=== PATIENT | female | born 1970 | race African-American/Black ===

== ENCOUNTER 2016-08-24 22:23 | Emergency (ER) | payer SELFPAY ==
[2016-08-24] MEDS ORDERED: Ondansetron INJ* 2 MG/ML VIAL IV ONE (22:27)
[2016-08-24] MEDS ORDERED: NS 0.9% 1000 ML* 1,000 ML IV ONE (22:27)
--- NOTE | 2016-08-24 23:09 | ED ---
Angelina Zaldivar Salem, scribed for Kan Rice MD on 08/24/16 at 2251 . Substance Abuse/Use - HPI Summary HPI Summary: Patient is a 46 y/o female who presents to the ED per EMS with vomiting for the last 12 hours. Per EMS, pt drank a pint of Vodka DIRECTOR ADULT. She reports nausea, depression, and blood in her stool for the last 3 weeks. She states that she has not seen her PCP for the blood in the stool because she was "eating omeprazole like candy". She also states there was blood in her vomit. - History Of Current Complaint Stated Complaint: VOMIT BLOOD Hx Obtained From: Patient, EMS Onset/Duration of Drug/ETOH Abuse: Hours Ingestion History: Type/Name Of Drug - Vodka., Amount Ingested - One pint. Overdose Characteristics: Oral Severity Initially: Moderate Severity Currently: Moderate Aggravating Factor(s): Nothing Alleviating Factor(s): Nothing Associated Signs And Symptoms: Nausea, Vomiting - with blood., Other: - Depression. Blood in stool. - Allergies/Home Medications Allergies/Adverse Reactions: Allergies Allergy/AdvReac Type Severity Reaction Status Date / Time Ceftriaxone [From Rocephin] Allergy Severe Anaphylatic Verified 12/28/15 06:13 Shock Bupropion [From Wellbutrin] Allergy Intermediate Itching Verified 12/28/15 06:13 Tramadol Allergy Intermediate Itching Verified 12/28/15 06:13 Lactose Allergy GI Upset Verified 02/15/16 07:56 Topiramate [From Topamax] Allergy Unknown Verified 12/28/15 06:13 Reaction Details PMH/Surg Hx/FS Hx/Imm Hx Endocrine/Hematology History: Denies: Hx Anticoagulant Therapy, Hx Blood Disorders, Hx Blood Transfusions, Hx Bone Marrow Disease, Hx Diabetes, Hx Systemic Lupus Erythematosus, Hx Sickle Cell Disease, Hx Thyroid Disease, Hx Anemia, Hx Unexplained Bleeding Cardiovascular History: Reports: Hx Hypertension Denies: Hx Aneurysm, Hx Angina, Hx Angioplasty, Hx Auto Implanted Cardiovert Defib, Hx Cardiac Arrest, Hx Cardiomegaly, Hx Congenital Heart Disease, Hx Congestive Heart Failure, Hx Coronary Artery Disease, Hx Deep Vein Thrombosis, Hx Hypercholesterolemia, Hx Hypotension, Hx Pacemaker/ICD, Hx Peripheral Vascular Disease, Hx Rheumatic Fever, Hx Syncope, Hx Valvular Heart Disease, Other Cardiovascular Problems/Disorders Respiratory History: Reports: Hx Asthma, Hx Sleep Apnea Denies: Hx Chronic Bronchitis, Hx Chronic Obstructive Pulmonary Disease (COPD ), Hx Cystic Fibrosis, Hx Lung Cancer, Hx Pneumonia, Hx Pulmonary Edema, Hx Pulmonary Embolism, Hx Seasonal Allergies, Other Respiratory Problems/Disorders GI History: Reports: Hx Gall Bladder Disease, Hx Gastroesophageal Reflux Disease , Hx Gastrointestinal Bleed, Hx Obstructive Bowel, Hx Ulcer, Other GI Disorders Denies: Hx Cirrhosis, Hx Crohn's Disease, Hx Diverticulosis, Hx Hiatal Hernia , Hx Irritable Bowel, Hx Jaundice, Hx Ileostomy, Hx Pyloric Stenosis History: Denies: Hx Renal Disease Musculoskeletal History: Reports: Hx Arthritis, Hx Back Problems, Hx Orthopedic Injury - back/neck Sensory History: Denies: Hx Hearing Aid Neurological History: Reports: Hx Headaches, Hx Seizures Denies: Hx Dementia, Hx Developmental Delay, Hx Migraine, Hx Nerve Disease, Hx Spinal Cord Injury, Hx Transient Ischemic Attacks (TIA), Other Neuro Impairments/Disorders Psychiatric History: Reports: Hx Anxiety, Hx Depression, Hx Panic Disorder, Hx Post Traumatic Stress Disorder, Hx Inpatient Treatment, Hx Bipolar Disorder, Hx Suicide Attempt, Hx of Violent Episodes Against Others, Hx Substance Abuse, Other Psychiatric Issues/Disorders - Alcoholism Denies: Hx Attention Deficit Hyperactivity Disorder, Hx Eating Disorder, Hx Community Mental Health Tx, Hx Schizophrenia - Cancer History Hx Chemotherapy: No Hx Radiation Therapy: No Hx Palliative Cancer Treatment: No - Surgical History Surgery Procedure, Year, and Place: DOUBLE INGUINAL HERNIA. LYPOMA REMOVED FROM RIGHT BREAST. CERVIX. GASTRIC BYPASS. BOWEL OBSTRUCTION CORRECTION - Immunization History Date of Tetanus Vaccine: unknown Date of Influenza Vaccine: Unknown Infectious Disease History: Unable to Obtain/Confirm Infectious Disease History: Reports: Hx Hepatitis Denies: Hx Clostridium Difficile, Hx Human Immunodeficiency Virus (HIV), Hx Shingles, Hx Tuberculosis, Traveled Outside the [place] in Last 30 Days - Family History Known Family History: Positive: Hypertension - Social History Alcohol Use: Daily Alcohol Amount: drank "2 joints" tonight Hx Substance Use: No Substance Use Type: Reports: Cocaine, Marijuana, Other Substance Use Comment - Amount & Last Used: unknown Hx Tobacco Use: Yes Smoking Status (MU): Heavy Every Day Tobacco Smoker Type: Cigarettes Amount Used/How Often: 1 pack q day Have You Smoked in the Last Year: Yes Review of Systems Negative: Fever Positive: Vomiting, Nausea Positive: other - Blood in stool. Positive: Depressed All Other Systems Reviewed And Are Negative: Yes Physical Exam Triage Information Reviewed: Yes Vital Signs On Initial Exam: Initial Vitals Temp Pulse Resp BP Pulse Ox 98.1 F 98 16 177/116 100 08/24/16 22:29 08/24/16 22:29 08/24/16 22:29 08/24/16 22:29 08/24/16 22:29 Vital Signs Reviewed: Yes Appearance: Positive: No Pain Distress, Ill-Appearing Skin: Positive: Warm Head/Face: Positive: Normal Head/Face Inspection Eyes: Positive: [place] ENT: Positive: Hearing grossly normal Neck: Positive: Supple Respiratory/Lung Sounds: Positive: Breath Sounds Present Cardiovascular: Positive: RRR Abdomen Description: Positive: Soft, Other: - mild diffuse abd tenderness Bowel Sounds: Positive: Present Musculoskeletal: Positive: Strength/ROM Intact Neurological: Positive: Sensory/Motor Intact, Alert, Oriented to Person Place, Time Psychiatric: Positive: Affect/Mood Appropriate Diagnostics - Vital Signs Vital Signs Temp Pulse Resp BP Pulse Ox 08/24/16 22:29 98.1 F 98 16 177/116 100 - Laboratory Result Diagrams: 08/24/16 23:05 08/24/16 23:05 Lab Statement: Any lab studies that have been ordered have been reviewed, and results considered in the medical decision making process. Re-Evaluation - Re-Evaluation First Eval Change: Improved - no further vomit Course/Dx - Course Course Of Treatment: 46 y/o female presents with vomiting and EtOH intoxication. She reports nausea, depression, and blood in her stool for the last 3 weeks. She received IV fluids and Ondansetron in the ED. Serum EtOH: 174. - Diagnoses Provider Diagnoses: Vomiting, Alcohol use disorder, severe, dependence Discharge - Discharge Plan Condition: Improved Disposition: HOME Patient Education Materials: Alcohol Intoxication (ED), Acute Nausea and Vomiting (ED) Referrals: Steven Painter MD [Primary Care Provider] - Additional Instructions: Follow up with PCP. The documentation as recorded by the Angelina yee Salem accurately reflects the service I personally performed and the decisions made by , Kan Rice MD.
[2016-08-24 23:37] LABS: Comments Flag Yes; Hematocrit 31 % (35-47); Hemoglobin 9.5 g/dl (12.0-16.0); Mean Corpuscular HGB Conc 31 g/dl (31-36); Mean Corpuscular Hemoglobin 26 pg (27-31); Mean Corpuscular Volume 83 fL (80-97); Mean Platelet Volume 7 um3 (7.4-10.4); Red Blood Count 3.74 10^6/ul (4.0-5.4); White Blood Count 6.2 10^3/ul (3.5-10.8)
[2016-08-24 23:38] LABS: Red Cell Distribution Width 27 % (10.5-15)
[2016-08-24 23:46] LABS: BUN/Creatinine Ratio 12.3 (8-20); C Reactive Protein 3.49 mg/L (< 5.00); Calcium 8.9 mg/dL (8.6-10.3); EGFR African American 109.9 (>60); EGFR Non-African American 85.5 (>60); Globulin 4.1 g/dL (2-4); Magnesium 1.5 mg/dL (1.9-2.7); Potassium 3.3 mmol/L (3.5-5.0); Total Bilirubin 0.4 mg/dL (0.2-1.0); Total Protein 8.1 g/dL (6.4-8.9)
[2016-08-25] MEDS ORDERED: LORazepam INJ* 2 MG/ML 1 ML VIAL IV PUSH ONE (00:07)
[2016-08-25] MEDS ORDERED: Metoclopramide IV* 5 MG/ML 2 ML VIAL IV ONE (00:07)
[2016-08-25] MEDS: Ondansetron ODT TAB* 4 MG PO ONE ×2 (05:37)
[2016-08-25 06:02] VITALS: BP 176/101
== END 2016-08-25 06:31 | disposition home or self-care (01) ==
LOC: ED 22:23
DX: F10.20 Alcohol dependence, uncomplicated (principal); R11.2 Nausea with vomiting, unspecified; F32.9 Major depressive disorder, single episode, unspecified; F17.210 Nicotine dependence, cigarettes, uncomplicated
CPT/HCPCS: 36415; 80053; 80320; 83605; 83690; 83735; 85025; 85610; 86140; 96374; 96375; 99284; G0480; J2060; J2405

== ENCOUNTER 2016-08-25 19:38 | Emergency (ER) | payer SELFPAY ==
[2016-08-25] MEDS ORDERED: Metoprolol Tartrate IV* 1 MG/ML 5 ML VIAL IV ONE (19:56)
[2016-08-25] MEDS ORDERED: NS 0.9% 1000 ML* 1,000 ML IV ONE (19:56)
[2016-08-25] MEDS ORDERED: Ketorolac INJ* 30 MG/ML 1 ML VIAL IV PUSH ONE (20:35)
[2016-08-25 20:42] LABS: Hematocrit 31 % (35-47); Hemoglobin 9.7 g/dl (12.0-16.0); Mean Corpuscular HGB Conc 31 g/dl (31-36); Mean Corpuscular Hemoglobin 26 pg (27-31); Mean Corpuscular Volume 82 fL (80-97); Mean Platelet Volume 8 um3 (7.4-10.4); White Blood Count 13.4 10^3/ul (3.5-10.8)
[2016-08-25] MEDS ORDERED: Ondansetron INJ* 2 MG/ML VIAL IV ONE (20:44)
[2016-08-25 20:46] LABS: Comments Flag Yes
[2016-08-25 20:47] LABS: Red Cell Distribution Width 25 % (10.5-15)
[2016-08-25 20:48] LABS: Add Diff/Slide Review? Slide Review Added
[2016-08-25 20:57] LABS: Albumin 3.8 g/dL (3.2-5.2); BUN/Creatinine Ratio 11.8 (8-20); Calcium 8.8 mg/dL (8.6-10.3); EGFR African American 92.2 (>60); EGFR Non-African American 71.7 (>60); Globulin 4.1 g/dL (2-4); Magnesium 1.1 mg/dL (1.9-2.7); Total Bilirubin 0.6 mg/dL (0.2-1.0); Total Protein 7.9 g/dL (6.4-8.9)
[2016-08-25 20:58] LABS: Potassium 2.6 mmol/L (3.5-5.0)
[2016-08-25] MEDS ORDERED: Potassium Chloride LIQUID* 20 MEQ PACKET PO ONE (21:00)
[2016-08-25] MEDS ORDERED: Metoclopramide IV* 5 MG/ML 2 ML VIAL IV ONE (22:56)
--- NOTE | 2016-08-26 00:18 | ED ---
Rogelio Zaldivar SooYoung, scribed for Kan Rice MD on 08/25/16 at 2001 . Neurological HPI - HPI Summary HPI Summary: A 46 y/o F GISEL presents to ED with fronta SOLIMAN onset SURGICAL CORSETIER. Pt states she had a seizure. Per EMS: When she went to get on the bus, she lost her balance. When they arrived on scene, pt was alert at the bus stop smoking a cigarette. Associated sx: loss of balance. Denies EtOH today. Pert PMHx: sz. Pt does not take sz medication. Pt was seen yesterday in ED for c/o of hemesis; dx: EToH intoxication, acute n/v. - History of Current Complaint Stated Complaint: SEIZURE Time Seen by Provider: 08/25/16 19:49 Hx Obtained From: Patient, EMS, Medical Records Onset/Duration: Sudden Onset, Started hours ago, Still Present Timing: Constant Pain Intensity: 8 Pain Scale Used: 0-10 Numeric Associated Signs and Symptoms: Positive: Unsteady Gait, Seizure - Additional Pertinent History Primary Care Physician: [id number] - Allergy/Home Medications Allergies/Adverse Reactions: Allergies Allergy/AdvReac Type Severity Reaction Status Date / Time Ceftriaxone [From Rocephin] Allergy Severe Anaphylatic Verified 12/28/15 06:13 Shock Bupropion [From Wellbutrin] Allergy Intermediate Itching Verified 12/28/15 06:13 Tramadol Allergy Intermediate Itching Verified 12/28/15 06:13 Lactose Allergy GI Upset Verified 02/15/16 07:56 Topiramate [From Topamax] Allergy Unknown Verified 12/28/15 06:13 Reaction Details PMH/Surg Hx/FS Hx/Imm Hx Previously Healthy: No Endocrine/Hematology History: Denies: Hx Anticoagulant Therapy, Hx Blood Disorders, Hx Blood Transfusions, Hx Bone Marrow Disease, Hx Diabetes, Hx Systemic Lupus Erythematosus, Hx Sickle Cell Disease, Hx Thyroid Disease, Hx Anemia, Hx Unexplained Bleeding Cardiovascular History: Reports: Hx Hypertension Denies: Hx Aneurysm, Hx Angina, Hx Angioplasty, Hx Auto Implanted Cardiovert Defib, Hx Cardiac Arrest, Hx Cardiomegaly, Hx Congenital Heart Disease, Hx Congestive Heart Failure, Hx Coronary Artery Disease, Hx Deep Vein Thrombosis, Hx Hypercholesterolemia, Hx Hypotension, Hx Pacemaker/ICD, Hx Peripheral Vascular Disease, Hx Rheumatic Fever, Hx Syncope, Hx Valvular Heart Disease, Other Cardiovascular Problems/Disorders Respiratory History: Reports: Hx Asthma, Hx Sleep Apnea Denies: Hx Chronic Bronchitis, Hx Chronic Obstructive Pulmonary Disease (COPD ), Hx Cystic Fibrosis, Hx Lung Cancer, Hx Pneumonia, Hx Pulmonary Edema, Hx Pulmonary Embolism, Hx Seasonal Allergies, Other Respiratory Problems/Disorders GI History: Reports: Hx Gall Bladder Disease, Hx Gastroesophageal Reflux Disease , Hx Gastrointestinal Bleed, Hx Obstructive Bowel, Hx Ulcer, Other GI Disorders Denies: Hx Cirrhosis, Hx Crohn's Disease, Hx Diverticulosis, Hx Hiatal Hernia , Hx Irritable Bowel, Hx Jaundice, Hx Ileostomy, Hx Pyloric Stenosis History: Denies: Hx Renal Disease Musculoskeletal History: Reports: Hx Arthritis, Hx Back Problems, Hx Orthopedic Injury - back/neck Sensory History: Denies: Hx Hearing Aid Neurological History: Reports: Hx Headaches, Hx Seizures Denies: Hx Dementia, Hx Developmental Delay, Hx Migraine, Hx Nerve Disease, Hx Spinal Cord Injury, Hx Transient Ischemic Attacks (TIA), Other Neuro Impairments/Disorders Psychiatric History: Reports: Hx Anxiety, Hx Depression, Hx Panic Disorder, Hx Post Traumatic Stress Disorder, Hx Inpatient Treatment, Hx Bipolar Disorder, Hx Suicide Attempt, Hx of Violent Episodes Against Others, Hx Substance Abuse, Other Psychiatric Issues/Disorders - Alcoholism Denies: Hx Attention Deficit Hyperactivity Disorder, Hx Eating Disorder, Hx Community Mental Health Tx, Hx Schizophrenia - Cancer History Hx Chemotherapy: No Hx Radiation Therapy: No Hx Palliative Cancer Treatment: No - Surgical History Surgery Procedure, Year, and Place: DOUBLE INGUINAL HERNIA. LYPOMA REMOVED FROM RIGHT BREAST. CERVIX. GASTRIC BYPASS. BOWEL OBSTRUCTION CORRECTION - Immunization History Date of Tetanus Vaccine: unknown Date of Influenza Vaccine: Unknown Infectious Disease History: Reports: Hx Hepatitis Denies: Hx Clostridium Difficile, Hx Human Immunodeficiency Virus (HIV), Hx Shingles, Hx Tuberculosis, Traveled Outside the [place] in Last 30 Days - Family History Known Family History: Positive: Hypertension, Other - pos: depression, anxiety, EToH abuse - Social History Occupation: Unemployed Lives: Alone Alcohol Use: Daily Alcohol Amount: drank "2 joints" tonight Hx Substance Use: Yes Substance Use Type: Reports: Cocaine, Marijuana, Other Substance Use Comment - Amount & Last Used: unknown Hx Tobacco Use: Yes Smoking Status (MU): Heavy Every Day Tobacco Smoker Type: Cigarettes Amount Used/How Often: 1 pack q day Have You Smoked in the Last Year: Yes Review of Systems Neurological: Other - pos: pt states she had a SZ; unsteady gait Positive: Headache All Other Systems Reviewed And Are Negative: Yes Physical Exam Triage Information Reviewed: Yes Vital Signs On Initial Exam: Initial Vitals Temp Pulse Resp BP Pulse Ox 98.4 F 164 15 111/61 97 08/25/16 19:51 08/25/16 19:51 08/25/16 19:51 08/25/16 19:51 08/25/16 19:51 Vital Signs Reviewed: Yes Appearance: Positive: Well-Appearing, No Pain Distress Skin: Positive: Warm Head/Face: Positive: Normal Head/Face Inspection Eyes: Positive: EOMI, R[place] ENT: Positive: Hearing grossly normal Neck: Positive: Supple Respiratory/Lung Sounds: Positive: Clear to Auscultation, Breath Sounds Present Cardiovascular: Positive: RRR Abdomen Description: Positive: Nontender, Soft Bowel Sounds: Positive: Present Musculoskeletal: Positive: Strength/ROM Intact Neurological: Positive: Sensory/Motor Intact, Alert, Oriented to Person Place, Time Psychiatric: Positive: Affect/Mood Appropriate Diagnostics - Vital Signs Vital Signs Temp Pulse Resp BP Pulse Ox 08/25/16 19:51 98.4 F 164 15 111/61 97 - Laboratory Lab Results: Lab Results 08/25/16 08/25/16 08/25/16 Range/Units 20:33 20:33 20:33 WBC 13.4 H (3.5-10.8) 10^3/ul RBC 3.80 L (4.0-5.4) 10^6/ul Hgb 9.7 L (12.0-16.0) g/dl Hct 31 L (35-47) % MCV 82 (80-97) fL MCH 26 L (27-31) pg MCHC 31 (31-36) g/dl RDW 25 H (10.5-15) % Plt Count 200 (150-450) 10^3/ul MPV 8 (7.4-10.4) um3 Neut % (Auto) 81.3 (38-83) % Lymph % (Auto) 4.5 L (25-47) % [place] % (Auto) 13.7 H (1-9) % Eos % (Auto) 0.1 (0-6) % Baso % (Auto) 0.4 (0-2) % Absolute Neuts (auto) 11.0 H (1.5-7.7) 10^3/ul Absolute Lymphs (auto) 0.6 L (1.0-4.8) 10^3/ul Absolute Monos (auto) 1.8 H (0-0.8) 10^3/ul Absolute Eos (auto) 0 (0-0.6) 10^3/ul Absolute Basos (auto) 0 (0-0.2) 10^3/ul Absolute Nucleated RBC 0 10^3/ul Nucleated RBC % 0 INR (Anticoag Therapy) 0.94 (0.89-1.11) Sodium 133 (133-145) mmol/L Potassium 2.6 L* (3.5-5.0) mmol/L Chloride 93 L (101-111) mmol/L Carbon Dioxide 25 (22-32) mmol/L Anion Gap 15 H (2-11) mmol/L BUN 10 (6-24) mg/dL Creatinine 0.85 (0.51-0.95) mg/dL Est GFR ( Amer) 92.2 (>60) Est GFR (Non-Af Amer) 71.7 (>60) BUN/Creatinine Ratio 11.8 (8-20) Glucose 109 H (70-100) mg/dL Lactic Acid (0.5-2.0) mmol/L Calcium 8.8 (8.6-10.3) mg/dL Magnesium 1.1 L (1.9-2.7) mg/dL Total Bilirubin 0.60 (0.2-1.0) mg/dL AST 44 H (13-39) U/L ALT 15 (7-52) U/L Alkaline Phosphatase 79 (34-104) U/L Total Protein 7.9 (6.4-8.9) g/dL Albumin 3.8 (3.2-5.2) g/dL Globulin 4.1 H (2-4) g/dL Albumin/Globulin Ratio 0.9 L (1-3) Serum Alcohol (<10) mg/dL 08/25/16 08/25/16 Range/Units 20:33 20:33 WBC (3.5-10.8) 10^3/ul RBC (4.0-5.4) 10^6/ul Hgb (12.0-16.0) g/dl Hct (35-47) % MCV (80-97) fL MCH (27-31) pg MCHC (31-36) g/dl RDW (10.5-15) % Plt Count (150-450) 10^3/ul MPV (7.4-10.4) um3 Neut % (Auto) (38-83) % Lymph % (Auto) (25-47) % [place] % (Auto) (1-9) % Eos % (Auto) (0-6) % Baso % (Auto) (0-2) % Absolute Neuts (auto) (1.5-7.7) 10^3/ul Absolute Lymphs (auto) (1.0-4.8) 10^3/ul Absolute Monos (auto) (0-0.8) 10^3/ul Absolute Eos (auto) (0-0.6) 10^3/ul Absolute Basos (auto) (0-0.2) 10^3/ul Absolute Nucleated RBC 10^3/ul Nucleated RBC % INR (Anticoag Therapy) (0.89-1.11) Sodium (133-145) mmol/L Potassium (3.5-5.0) mmol/L Chloride (101-111) mmol/L Carbon Dioxide (22-32) mmol/L Anion Gap (2-11) mmol/L BUN (6-24) mg/dL Creatinine (0.51-0.95) mg/dL Est GFR ( Amer) (>60) Est GFR (Non-Af Amer) (>60) BUN/Creatinine Ratio (8-20) Glucose (70-100) mg/dL Lactic Acid 2.3 H* (0.5-2.0) mmol/L Calcium (8.6-10.3) mg/dL Magnesium (1.9-2.7) mg/dL Total Bilirubin (0.2-1.0) mg/dL AST (13-39) U/L ALT (7-52) U/L Alkaline Phosphatase (34-104) U/L Total Protein (6.4-8.9) g/dL Albumin (3.2-5.2) g/dL Globulin (2-4) g/dL Albumin/Globulin Ratio (1-3) Serum Alcohol 20 H (<10) mg/dL Result Diagrams: 08/25/16 20:33 08/25/16 20:33 Lab Statement: Any lab studies that have been ordered have been reviewed, and results considered in the medical decision making process. - EKG 1 Cardiac Rate: Tachycardia EKG Rhythm: SVT Re-Evaluation - Re-Evaluation 1 Re-Evaluation Time: 22:49 Change: Improved Course/Dx - Diagnoses Provider Diagnoses: Vomiting Discharge - Discharge Plan Condition: Stable Disposition: HOME Patient Education Materials: Acute Nausea and Vomiting (ED) Referrals: Steven Painter MD [Primary Care Provider] - 1 Day (Follow-up tomorrow. ) Additional Instructions: Follow up with your primary care physician tomorrow. Please return to the ED if you experience new or worsening symptoms. The documentation as recorded by the Rogelio yee SooYoung accurately reflects the service I personally performed and the decisions made by me, Kan Rice MD.
[2016-08-26] MEDS ORDERED: Omeprazole CAP* 20 MG PO ONE (01:05)
[2016-08-26] MEDS ORDERED: Potassium Chloride LIQUID* 20 MEQ PACKET PO ONE (01:07)
[2016-08-26 02:30] VITALS: BP 150/98
== END 2016-08-26 02:37 | disposition home or self-care (01) ==
LOC: ED 19:38
DX: R11.10 Vomiting, unspecified (principal); R51 Headache; F17.210 Nicotine dependence, cigarettes, uncomplicated
CPT/HCPCS: 36415; 80053; 80320; 83605; 83735; 85025; 85610; 93005; 96374; 96375; 99283; A9270-GY; G0480; J1885; J2405

== ENCOUNTER 2016-08-27 18:39 | Emergency (ER) | payer SELFPAY ==
[2016-08-27] MEDS ORDERED: EPINEPHrine SYR 0.1 MG/ML* (1:10,000) SYRINGE ONE ×7 (18:40→19:04)
[2016-08-27] MEDS ORDERED: Naloxone* 0.4 MG/ML 1 ML VIAL ONE (18:41)
[2016-08-27] MEDS ORDERED: Sodium Bicarbonate 8.4% IV* 50 ML VIAL ONE ×3 (18:48→19:05)
[2016-08-27 19:49] VITALS: BP 00/00
--- NOTE | 2016-08-27 22:03 | ED ---
Gordon Zaldivar Michael, scribed for Donald Gustafson MD on 08/27/16 at 1901 . Cardiac Resuscitation - HPI Summary HPI Summary: 46 y/o female was BIBA as STEMI for cardiac arrest. The pt had a witnessed collapse and loss consciousness before EMS arrived. Once EMS arrived, the pt was found in V-fib and was defibbed putting her back in sinus rhythm. Her pulse then dropped back to bradycardia, and she was given 1 mg of Epi. The pt took a few spontaneous breathes before V-fib occurred again, and she was defibbed again per EMS. CPR was performed until arrival to ED. At the ED, the pt was given a total of 4 Epi at the ED, .4 mg of Narcan, 150mg Bicarb 3x, and 100 mg of Lidocaine. After 3 minutes of CPR, the pt's pulse was checked. She was in V-fib and had another round of defibrillation with continuos CPR afterwards. The pt as been PEA at the ED except for 2 instances where she was in V-fib and had defibrillation. At 1908, pt pulses were checked and was PEA. - History of Current Complaint Chief Complaint: EDCardiacArrest Stated Complaint: ABC Hx Obtained From: EMS, Medical Records Hx From Patient Unobtainable Due To: Altered Mental Status - level 5 caveat - Additional Pertinent History Primary Care Physician: [id number] - Allergies/Home Medications Allergies/Adverse Reactions: Allergies Allergy/AdvReac Type Severity Reaction Status Date / Time Ceftriaxone [From Rocephin] Allergy Severe Anaphylatic Verified 12/28/15 06:13 Shock Bupropion [From Wellbutrin] Allergy Intermediate Itching Verified 12/28/15 06:13 Tramadol Allergy Intermediate Itching Verified 12/28/15 06:13 Lactose Allergy GI Upset Verified 02/15/16 07:56 Topiramate [From Topamax] Allergy Unknown Verified 12/28/15 06:13 Reaction Details - Past Medical History Past Medical History: Unobtainable Due to Extremis - level 5 caveat - Family History Family History: Unobtainable Due to Extremis - level 5 caveat - Social History Social History: Drug Use - Cocaine-last 18 months, ETOH Use - Review of Systems Review of Systems: Unobtainable Due to Extremis - Level 5 caveat Physical Examination - Physical Examination Completion Of Physical Exam Limited Due To: Altered Mental Status - LEVEL 5 CAVEAT Diagnostics - Vital Signs Vital Signs Temp Pulse Resp BP Pulse Ox 08/27/16 18:40 0 F 0 0 82 - Laboratory Lab Statement: Any lab studies that have been ordered have been reviewed, and results considered in the medical decision making process. Cardiac Resus. Course/Dx - Course Course Of Treatment: Ms. Ortiz came in in asystole with CPR in progress. She was continued with ACLS protocol including intubation with a continuous decline in her cardiac function. With CPR and medications she would go into a sinus rhythm in PEA and would immediately joan down while checking pulses. She occasionally had V-fib which she would shock out of and back into PEA. Reversible causes were treated. She was recently in the ED and hypokalemic ( she almost always runs a bit low) and was replaced with 80 meq of K IV about 36 hours PLASTER [employer]EM[employer]. She was down with adequate CPR for nearly an hour without any improvement and continuous decline. - Diagnoses Provider Diagnoses: Cardiopulmonary arrest - Provider Notifications Discussed Care Of Patient With: Discussed patient care with Change Of Address Clerk at 1925 - Critical Care Time Critical Care Time: 30-74 min Discharge - Discharge Plan Condition: Disposition: Referrals: Steven Painter MD [Primary Care Provider] - The documentation as recorded by the Gordon yee Michael accurately reflects the service I personally performed and the decisions made by , Donald Gustafson MD.
== END 2016-08-27 19:09 | disposition expired ==
LOC: ED 18:39
DX: I46.9 Cardiac arrest, cause unspecified (principal); R41.82 Altered mental status, unspecified
CPT/HCPCS: 92950; 99285; J0171; J2310